=== PATIENT | male | born 1995 | race Two or more races ===

== ENCOUNTER 2024-12-13 12:57 | Emergency (ER) | payer MEDICAID ==
[~2024-12-13] VITALS: Ht 177.8 cm; Wt 117.9 kg
[2024-12-13 14:20] LABS: APPEARANCE,URINE CLEAR (CLEAR); BLOOD, URINE Negative Ery/uL (NEGATIVE); LEUKOCYTE ESTERASE ,URINE Negative (NEGATIVE); UGLUCOSE Negative (NEGATIVE)
[2024-12-13 14:21] LABS: NITRITE, URINE NEGATIVE (NEGATIVE)
[2024-12-13 14:26] LABS: PLATELET COUNT (AUTO) 280 K/uL (150-450); RED BLOOD CELL COUNT(AUTO) 5.26 MIL/uL (4.5-6.0); RED CELL DISTRIBUTION WIDTH 13.5 % (11.5-15.0); WHITE BLOOD COUNT (AUTO) 5.4 K/uL (4.3-11.0)
[2024-12-13 14:33] LABS: CALCIUM, SERUM 9.9 mg/dL (8.5-10.1); CREATININE 1.0 mg/dL (0.6-1.3); SODIUM SERUM 137.0 mmol/L (136-145); UREA NITROGEN, BLOOD 15.0 mg/dL (7-18)
[2024-12-13 14:39] LABS: ASPARTATE AMINOTRANSFERASE 22.0 U/L (15-37); TOTAL PROTEIN, SERUM 7.8 g/dL (6.4-8.2)
[2024-12-13] MEDS ORDERED: KETOROLAC TROMETHAMINE 15 MG/ML VIAL ONE (14:42)
[2024-12-13] MEDS ORDERED: ACETAMINOPHEN ES 500 MG TABLET ONE (14:42)
[2024-12-13] MEDS: IV NS 0.9% 1,000 ML BAG IV ONE (14:53)
[2024-12-13] MEDS: ACETAMINOPHEN ES 500 MG TABLET PO ONE (14:54)
[2024-12-13] MEDS: KETOROLAC TROMETHAMINE 15 MG/ML VIAL IV ONE (14:54)
[2024-12-13] MEDS ORDERED: LIDOCAINE 5% (PATCH) 1 EA PATCH TP ONE (16:09)
[2024-12-13] MEDS: LIDOCAINE 5% (PATCH) 1 EA PATCH TP STA (16:14)
[2024-12-13] MEDS ORDERED: CYCL5TAB PO (16:18)
[2024-12-13] MEDS ORDERED: IBUP-1955 PO (16:18)
[2024-12-13] MEDS ORDERED: LIDO30AD10 TP (16:18)
[2024-12-13] MEDS ORDERED: METH4TAB17 PO (16:18)
[2024-12-13 16:30] VITALS: BP 145/87; TEMP 98.4; O2SAT 99
== END 2024-12-13 16:32 | disposition home or self-care (01) ==
LOC: ER 13:20
DX: M54.50 Low back pain, unspecified (principal); J45.909 Unspecified asthma, uncomplicated; Z60.2 Problems related to living alone
CPT/HCPCS: 99285; 96374; 76770; 96361; 85025; 80048; 83690; 80076; 81003; 36415; J1885; J7030